=== PATIENT | male | born 1995 | race Caucasian/White ===

== ENCOUNTER 2020-02-27 17:35 | Emergency (ER) | payer SELFPAY ==
--- NOTE | 2020-02-27 19:04 | ER Document Report ---
ED General - General Chief Complaint: Overdose Stated Complaint: POSSIBLE OVERDOSE Time Seen by Provider: 02/27/20 18:54 Mode of Arrival: Medic Information source: Emergency Med Personnel Notes: RN note Pt presents to the ED via EMS with reports of heroin overdose. EMS states pt became unresponsive after taking heroin. EMS reports fire department was first on the scene and states they were performing CPR on pt. EMS reports pt only became responsive after receiving 5mg Narcan intranasally. EMS reports they started 20G IV to RAC and administered 4mg Zofran. Pt resting peacefully in stretcher with eyes closed. Pt breaths even and unlabored with airway patent and intact. Pt remains on oxygen. Pt alert and oriented and answering questions appropriately. Will continue to monitor. denies HI or SI My note 25-year-old male arrives by EMS after he was unconscious after injecting heroin. He reports he has been off of the heroin for least 4 months but decided to try again. He began when he was 16 with high IV heroin. Today he was unconscious and fire department initially began CPR on him until he received 5 nasal Narcan. Patient arrives here as a good historian and has been speaking with [facility]. Where he has been thirsty drinking water and requesting cola. He denies any chest pain despite CPR on him earlier this afternoon. Patient does admit to some mild cephalgia. He denies any vision problems but is very drowsy. Patient has multiple tattoos over his arms and chest TRAVEL OUTSIDE OF THE [place] IN LAST 30 DAYS: No - HPI Onset: Just prior to arrival Onset/Duration: Sudden Quality of pain: No pain Severity: None Pain Level: 1 Associated symptoms: Headache Exacerbated by: Denies Relieved by: Denies Similar symptoms previously: Yes Recently seen / treated by doctor: No Past Medical History - General Information source: Patient, Emergency Med Personnel Cannot obtain history due to: Altered mental status - Social History Smoking Status: Current Every Day Smoker Cigarette use (# per day): Yes Chew tobacco use (# tins/day): No Smoking Education Provided: Yes Frequency of alcohol use: Occasional Drug Abuse: Heroin Lives with: Family Family History: Reviewed & Not Pertinent Patient has suicidal ideation: No Patient has homicidal ideation: No Review of Systems - Review of Systems Constitutional: See HPI, Weakness EENT: No symptoms reported Cardiovascular: No symptoms reported Respiratory: No symptoms reported Gastrointestinal: No symptoms reported Genitourinary: No symptoms reported Male Genitourinary: No symptoms reported Musculoskeletal: No symptoms reported Skin: No symptoms reported Hematologic/Lymphatic: No symptoms reported Neurological/Psychological: See HPI, Confusion, Weakness, Headaches Physical Exam - Vital signs Vitals: Resp 9 L 02/27/20 17:46 Interpretation: Normal - General General appearance: Other - Sleepy but oriented to self why he is here date and place - HEENT Head: Normocephalic, Atraumatic Eyes: Normal Conjunctiva: Normal Cornea: Normal Extraocular movements intact: Yes Pupils: PERRL Sinus: Normal Nasal: Normal Mouth/Lips: Normal Pharynx: Normal Neck: Normal - Respiratory Respiratory status: No respiratory distress Chest status: Nontender Breath sounds: Normal Chest palpation: Normal - Cardiovascular Rhythm: Regular Heart sounds: Normal auscultation Murmur: No - Abdominal Inspection: Normal Distension: No distension Bowel sounds: Normal Tenderness: Nontender Organomegaly: No organomegaly - Rectal Hemorrhoids: Other - deferred - Back Back: Normal - Extremities General upper extremity: Normal inspection, Other - except tracking FA and right AC IV General lower extremity: Normal inspection - Neurological Neuro grossly intact: Yes Cognition: Normal Orientation: AAOx4, Disoriented to events [place] Coma Scale Verbal: Oriented [place] Coma Scale Motor: Obeys Commands Speech: Normal Cranial nerves: Normal Cerebellar coordination: Normal Motor strength normal: LUE, RUE, LLE, RLE - Psychological Associated symptoms: Normal affect - Skin Skin Temperature: Warm Skin Moisture: Dry Course - Vital Signs Vital signs: Temp Pulse Resp BP Pulse Ox 97.6 F 16 124/69 95 02/27/20 17:49 02/28/20 00:01 02/28/20 00:01 02/28/20 00:01 - Laboratory Result Diagrams: 02/27/20 21:10 02/27/20 21:10 Laboratory results interpreted by me: 02/27/20 02/27/20 02/27/20 21:10 21:10 21:10 WBC 13.1 H Lymph % (Auto) 10.6 L Absolute Neuts (auto) 10.5 H Seg Neutrophils % 80.0 H BUN 21 H Glucose 111 H Urine Protein 30 H Urine Blood SMALL H Salicylates < 1.0 L - EKG Interpretation by Wi EKG shows normal: Sinus rhythm Rate: Normal Rhythm: NSR Critical Care Note - Critical Care Note Total time excluding time spent on procedures (mins): 90 Comments: Behavioral health evaluated this patient and he opted to go to rehab Discharge - Discharge Clinical Impression: Overdose of heroin Qualifiers: Encounter type: initial encounter Injury intent: accidental or unintentional Qualified Code(s): T40.1X1A - Poisoning by heroin, accidental (unintentional), initial encounter Condition: Good Disposition: PSYCH HOSP/UNIT Additional Instructions: transfer to rehabilitation after being stabilzed in ED Forms: Return to Work
--- NOTE | 2020-02-27 19:35 | RADIOLOGY REPORT (SQ) ---
EXAM DESCRIPTION: CHEST 2 VIEWS IMAGES COMPLETED DATE/TIME: 02/27/2020 7:24 pm REASON FOR STUDY: cpr COMPARISON: None. EXAM PARAMETERS: NUMBER OF VIEWS: two views TECHNIQUE: Digital Frontal and Lateral radiographic views of the chest acquired. RADIATION DOSE: NA LIMITATIONS: none FINDINGS: LUNGS AND PLEURA: Patchy parenchymal opacities. Most prominent right perihilar. MEDIASTINUM AND HILAR STRUCTURES: No masses or contour abnormalities. HEART AND VASCULAR STRUCTURES: Heart normal size. No evidence for failure. BONES: No acute findings. HARDWARE: None in the chest. OTHER: No other significant finding. IMPRESSION: Patchy parenchymal opacities in the lungs most prominent right perihilar. Pneumonia. TECHNICAL DOCUMENTATION: JOB ID: [id number] 2010 [employer]- All Rights Reserved Reading location - IP/workstation name: [email or web address]
[2020-02-27 21:29] LABS: ABSOLUTE LYMPHOCYTES (AUTO) 1.4 10^3/uL (0.5-4.7); ABSOLUTE MONOCYTES (AUTO) 1.2 10^3/uL (0.1-1.4); ABSOLUTE NEUT (AUTO) 10.5 10^3/uL (1.7-8.2); BASOPHILS % (AUTO) 0.2 % (0-2); EOSINOPHILS % (AUTO) 0.1 % (0-6); HEMATOCRIT 43.2 % (37.9-51.0); HEMOGLOBIN 14.9 g/dL (13.5-17.0); LYMPHOCYTES % (AUTO) 10.6 % (13-45); MEAN CORPUSCULAR HEMOGLOBIN 29.2 pg (27.0-33.4); MEAN CORPUSCULAR HGB CONC 34.4 g/dL (32.0-36.0); MEAN CORPUSCULAR VOLUME 85 fl (80-97); MONOCYTES % (AUTO) 9.1 % (3-13); PLATELET COUNT 260 10^3/uL (150-450); RED BLOOD COUNT 5.09 10^6/uL (4.35-5.55); RED CELL DISTRIBUTION WIDTH 12.6 % (11.5-14.0); TOTAL CELLS COUNTED % (AUTO) 100 %; WHITE BLOOD COUNT 13.1 10^3/uL (4.0-10.5)
[2020-02-27 21:49] LABS: ALBUMIN 4.8 g/dL (3.5-5.0); ALKALINE PHOSPHATASE 94 U/L (38-126); ANION GAP 8 (5-19); ASPARTATE AMINO TRANSFERASE 40 U/L (17-59); BILIRUBIN,TOTAL 0.7 mg/dL (0.2-1.3); BLOOD UREA NITROGEN 21 mg/dL (7-20); CALCIUM 9.6 mg/dL (8.4-10.2); CARBON DIOXIDE 29 mmol/L (22-30); CHLORIDE 101 mmol/L (98-107); GLUCOSE 111 mg/dL (75-110); POTASSIUM 4.3 mmol/L (3.6-5.0); TOTAL PROTEIN 8.1 g/dL (6.3-8.2)
[2020-02-27 21:50] LABS: ALCOHOL < 10 mg/dL (NONE DETECTED); SALICYLATE < 1.0 mg/dL (2.0-20.0)
--- NOTE | 2020-02-27 21:53 | PSYCHOLOGICAL NOTE ---
Psych Note - Psych Note Date seen by psych provider: 02/27/20 Time seen by psych provider: 20:00 Psych Note: Patient is a 25-year-old male who presents to ED via EMS for IV heroin overdose. Patient reports OD was not a suicide attempt. Patient reports use of heroin for 9 years with 4-5 overdoses. Patient reports last OD was 4 months ago. Patient has received detox and substance abuse treatment. Patient reports he was at [facility] in August with similar concerns. Patient's UDS is positive for opioid and methamphetamine. Patient reports he was diagnosed with depression and anxiety at age 14. Patient is not currently linked with a mental health provider for medication management or mental health services. Patient reports he is agreeable to treatment. Discussed voluntary admission to [facility]. Patient was agreeable. Clinician notes patient is experiencing psychomotor agitation, dry mouth, and drowsiness related to IV heroin use in conjunction with administration of Narcan. Patient is alert and oriented to person, place, time and circumstance. Mood is appropriate and within normal limits. Patient denies suicidal and homicidal ideations. Delusions are absent and behavior is congruent with an intact reality based presentation (i.e., organized and linear through processes). There is no observed behavior that suggests patient is responding to internal stimuli. Patient is able to engage in organized, rational thought processes. Patient is able to express needs and wants in a logical manner. Patient denies current auditory and visual hallucinations. Eye contact is appropriate. Conversational speech is impaired however is still easily understandable. Intellectual ability appears to be within average range. Attention and concentration are good. Insight, judgment and impulse control are currently fair. Impression/Plan: Patient is cleared from acute psychiatric services. Patient presents to ED via EMS for heroin overdose. Patient has a significant history with IV heroin use to include 4-5 overdoses. Patient has received detox and substance abuse treatment. Patient reports he is agreeable to substance abuse treatment and detox. Clinician encouraged patient to voluntarily present at [facility] for detox and substance abuse treatment. In the event patient does not present to [facility] for substance abuse treatment, a substance abuse resource list and a mental health resource list will be placed in patient's physical chart to be provided to patient when he no longer needs medical intervention to maintain stability. Dr. Tafoya was consulted on the care and management of this patient; attending physician is in agreement with recommendations and disposition.
[2020-02-27 21:54] LABS: APPEARANCE,URINE SLIGHTLY-CLOUDY; BILIRUBIN,URINE NEGATIVE (NEGATIVE); COLOR,URINE YELLOW; GLUCOSE, URINE NEGATIVE (NEGATIVE); KETONES,URINE NEGATIVE (NEGATIVE); LEUKOCYTE ESTERASE,URINE NEGATIVE (NEGATIVE); NITRITE,URINE NEGATIVE (NEGATIVE); PROTEIN,URINE 30 mg/dL (NEGATIVE); URINE SPECIFIC GRAVITY 1.024; UROBILINOGEN,URINE NEGATIVE mg/dL (<2.0)
[2020-02-27 22:08] LABS: URINE BARBITURATES SCREEN NEGATIVE; URINE BENZODIAZEPINES SCREEN NEGATIVE; URINE COCAINE SCREEN NEGATIVE; URINE MARIJUANA (THC) SCREEN NEGATIVE; URINE METHADONE SCREEN NEGATIVE; URINE PHENCYCLIDINE SCREEN NEGATIVE
[2020-02-28 03:06] VITALS: BP 137/77
--- NOTE | 2020-02-28 08:15 | EKG REPORT ---
SEVERITY:- BORDERLINE ECG - SINUS RHYTHM EARLY PRECORDIAL TRANSITION ?ETIOLOGY : Confirmed by: Zachary Yates MD 28-Feb-2020 08:14:18
== END 2020-02-28 01:15 ==
LOC: ER 17:35
DX: T40.1X1A Poisoning by heroin, accidental (unintentional), initial encounter (principal); R51 Headache; R41.0 Disorientation, unspecified; R53.1 Weakness; F17.210 Nicotine dependence, cigarettes, uncomplicated
CPT/HCPCS: 36415; 71046; 80053; 80307; 81001; 84484; 85025; 93005; 93010; 99291; 99292